=== PATIENT | female | born 1975 | race Caucasian/White ===

== ENCOUNTER → 2019-10-23 | Outpatient (CLI) | payer OTHER ==
[2019-10-23 13:50] LABS: MICROSCOPIC NOT IND
[2019-10-23 13:50] LABS: ALBUMIN 3.5 g/dL (3.4-5.0); ANION GAP 5 mmol/L (5-15); CALCIUM 8.5 mg/dL (8.5-10.1); CHLORIDE 110 mmol/L (98-107)
[2019-10-23 13:54] LABS: CULTURE INDICATED? NO
[2019-10-23 13:55] LABS: ALANINE AMINOTRANSFERASE 22 U/L (12-78); ALKALINE PHOSPHATASE 82 U/L (45-117); BILIRUBIN,TOTAL 0.3 mg/dL (0.2-1.0); CREATININE 0.79 mg/dL (0.55-1.02); TOTAL PROTEIN 7.7 g/dL (6.4-8.2)
[2019-10-23 14:00] LABS: MEAN CORPUSCULAR HEMOGLOBIN 22.1 pg (27.0-34.8); MEAN CORPUSCULAR HGB CONC 30.5 g/dL (32.4-35.8); MEAN CORPUSCULAR VOLUME 72.5 fL (80-100); MEAN PLATELET VOLUME 8.9 fL (7.4-10.4); PLATELET COUNT 364 x10^3/uL (130-400); RED BLOOD COUNT 4.67 x10^6/uL (3.82-5.3); RED CELL DISTRIBUTION WIDTH 18.6 % (9.6-15.2)
[2019-10-23 14:25] LABS: MD YES
[2019-10-23 14:28] LABS: ANISOCYTOSIS 1+; LYMPH#(MANUAL) 1.04 x10^3/uL (1-3.4); LYMPHS% (MANUAL) 23 % (22-44); MICROCYTOSIS 1+; MONOS#(MANUAL) 0.32 x10^3/uL (0.3-2.7); MONOS% (MANUAL) 7 % (2-9); SEG#(MANUAL) 3.15 x10^3/uL (1.8-6.8); SEGS% (MANUAL) 70 % (42-75)
[2019-10-23 14:29] LABS: <PLATELET ESTIMATE> ADEQUATE; <PLT MORPHOLOGY> NORMAL PLT MORPH; HYPOCHROMIA 1+; OVALOCYTES 1+; POLYCHROMASIA 1+
== END | disposition home or self-care (01) ==
LOC: STAR 12:57
PROVIDERS: ATTEND Obstetrics & Gynecology
DX: Z01.818 Encounter for other preprocedural examination (principal); N94.6 Dysmenorrhea, unspecified; N85.2 Hypertrophy of uterus; F10.20 Alcohol dependence, uncomplicated
CPT/HCPCS: 36415; 80053; 81003; 84702; 85025

== ENCOUNTER 2019-11-02 05:26 | Day surgery (SDC) | payer OTHER ==
[~2019-11-02] VITALS: Ht 165.1 cm; Wt 77.5 kg
[2019-11-02 06:16] VITALS: BP 107/71
[2019-11-02] MEDS ORDERED: LACTATED RINGERS 1,000 ML IV SCH (06:17)
[2019-11-02 06:26] LABS: HCG UR SG 1.027 (1.003-1.030)
[2019-11-02] MEDS ORDERED: BUPIVACAINE/PF 0.25% ONE (06:59)
[2019-11-02] MEDS ORDERED: FLUORESCEIN SODIUM 500 MG/5 ML ONE (06:59)
[2019-11-02] MEDS ORDERED: EPINEPHRINE 1 MG/ML, 1ML ONE (07:00)
[2019-11-02] MEDS ORDERED: FENTANYL PF 250 MCG/5ML ONE (07:13)
[2019-11-02] MEDS ORDERED: MIDAZOLAM 1 MG/ML, 2ML ONE (07:13)
[2019-11-02] MEDS ORDERED: APREPITANT 40 MG CAPSULE ONE ×2 (07:22)
[2019-11-02] MEDS ORDERED: GABAPENTIN 300 MG CAPSULE ONE ×2 (07:22)
[2019-11-02] MEDS ORDERED: PHENYLEPHRINE 10 MG/ML ONE (07:37)
[2019-11-02] MEDS ORDERED: PROMETHAZINE 25 MG/ML, 1ML IV PRN (08:00)
[2019-11-02] MEDS ORDERED: HYDROmorphone 2 MG/ML, 1ML IVPush PRN (08:00)
[2019-11-02] MEDS ORDERED: MEPERIDINE/PF 25MG/ML,1ML IVPush PRN (08:00)
[2019-11-02] MEDS ORDERED: hydrALAzine 20 MG/ML, 1ML IV PRN (08:00)
[2019-11-02] MEDS ORDERED: FENTANYL PF 100 MCG/2ML IV PRN (08:00)
[2019-11-02] MEDS ORDERED: OXYcodone 5 MG/5 ML ORAL.SOL UDC PO PRN (08:00)
[2019-11-02] MEDS ORDERED: ACETAMINOPHEN 325 MG TABLET PO PRN (08:00)
[2019-11-02] MEDS ORDERED: SUGAMMADEX 200 MG/2 ML IVPush ONE (09:35)
[2019-11-02] MEDS ORDERED: KETOROLAC 30 MG/1 ML ONE (09:38)
[2019-11-02] MEDS ORDERED: PROPOFOL 10 MG/ML, 20ML ONE (09:38)
[2019-11-02] MEDS ORDERED: ROCURONIUM 10MG/ML,5ML ONE (09:38)
[2019-11-02] MEDS ORDERED: DEXAMETHASONE 4 MG/ML, 1ML ONE (09:38)
[2019-11-02] MEDS ORDERED: ONDANSETRON 2MG/ML, 2ML ONE (09:38)
[2019-11-02] MEDS ORDERED: LIDOCAINE-MPF 2% ,5ML ONE (09:38)
[2019-11-02] MEDS ORDERED: CEFOTETAN PMX 2GM/50ML 50 ML ONE (09:38)
[2019-11-02] MEDS ORDERED: MEPERIDINE/PF 50 MG/ML ONE (09:45)
[2019-11-02] MEDS ORDERED: PROMETHAZINE 25 MG/ML, 1ML ONE (10:35)
== END 2019-11-02 14:15 | disposition home or self-care (01) ==
LOC: OUT 05:26
PROVIDERS: ATTEND Obstetrics & Gynecology
DX: N94.6 Dysmenorrhea, unspecified (principal); N72 Inflammatory disease of cervix uteri; N88.8 Other specified noninflammatory disorders of cervix uteri; N80.0 Endometriosis of uterus; N83.8 Other noninflammatory disorders of ovary, fallopian tube and broad ligament; N80.9 Endometriosis, unspecified; D64.9 Anemia, unspecified; D28.2 Benign neoplasm of uterine tubes and ligaments; E66.9 Obesity, unspecified; Z98.84 Bariatric surgery status; Z98.890 Other specified postprocedural states; Z90.49 Acquired absence of other specified parts of digestive tract; Z80.0 Family history of malignant neoplasm of digestive organs; Z82.61 Family history of arthritis; Z68.29 Body mass index [BMI] 29.0-29.9, adult
CPT/HCPCS: 36415; 58552; 81025; 86850; 86900; 88307; J0171; J1100; J1885; J2175; J2250; J2370; J2405; J2550; J2704; J3010; J3490; J7120; J8501